=== PATIENT | female | born 1960 | race Caucasian/White ===

== ENCOUNTER 2019-04-17 12:01 | Outpatient (REF) | payer BC, MEDICAID, SELFPAY ==
--- NOTE | 2019-04-17 11:20 | PAPFT_PTH ---
PATIENT: Natali Olson LOC: [facility] U#:[id number] AGE/SX: 58/F ROOM: RE04/17/[address]: JAIMEE Dunbar : 1960 BED: DIS: 04/17/2019 SPEC #: [id number] RECD: 04/17/19 13:02 STATUS: DEMETRIUS REAlvino #: [id number] LESLY: 04/17/19 11:[address]: Tasha Delgado DEPT: [facility] Cytology RECD BY: Demi Coe ENTERED: 04/17/19 13:02 SP TYPE: PAPFT OTHR DR: Linh Jefferson, Tissues: 1 - CX/ENDOCX FOR PAP SMEARS Procedures: PAP THIN PREP/UVM Screening HPV DNA PROBE Comments: [id number]
== END 2019-04-17 12:21 ==
LOC: LBN 12:01
PROVIDERS: PCP Student in an Organized Health Care Education/Training Program; Visit Provider Nurse Practitioner Family
DX: Z12.4 Encounter for screening for malignant neoplasm of cervix (principal); Z11.51 Encounter for screening for human papillomavirus (HPV)
CPT/HCPCS: 88142; 87624

== ENCOUNTER 2019-04-18 00:47 | Outpatient (CLI) | payer BC, MEDICAID, SELFPAY ==
--- NOTE | 2019-04-18 11:13 | DI.MAMMO_ITS ---
EXAM: MG MAMMO SCREENING CLINICAL HISTORY: screening Z12.39 TECHNIQUE: Mammograms were interpreted according to the usual protocol including computer analysis w [employer] CAD system, tomosynthesis and C-view imaging. COMPARISON: [id number] FINDINGS: The breasts are composed of fatty density tissue, breast density category A. No suspicious masses or suspicious microcalcifications are seen. There has been no significant change. IMPRESSION: Category 1, negative mammogram. Yearly screening mammography is recommended. BI-RADS Cat 1 - Negative Breast Density - Category A - Almost entirely fatty
== END 2019-04-18 01:07 ==
PROVIDERS: PCP Student in an Organized Health Care Education/Training Program; Visit Provider Nurse Practitioner Family
DX: Z12.31 Encounter for screening mammogram for malignant neoplasm of breast (principal)
CPT/HCPCS: 77063; 77067

== ENCOUNTER 2019-09-20 03:40 | Outpatient (CLI) | payer MEDICAID, SELFPAY ==
[2019-09-20 13:38] LABS: ALT 35 U/L (14-59); AST 24 U/L (15-37); Albumin 3.6 g/dL (3.4-5.0); Alkaline Phosphatase 99 U/L (46-116); Anion Gap 7.9 mmol/L (3-11); BUN 18 mg/dL (7-18); Bilirubin, Total 0.5 mg/dL (0.2-1.0); CO2 30.1 mmol/L (21.0-32.0); CREATININE 0.91 mg/dL (0.55-1.02); Calcium 9.2 mg/dL (8.5-10.1); Chloride 100 mmol/L (98-107); Glucose 91 mg/dL (74-106); Potassium 4.2 mmol/L (3.5-5.1); Sodium 138 mmol/L (136-145); Total Protein 7.4 g/dL (6.4-8.2)
[2019-09-20 13:53] LABS: Iron 106 ug/dL (50-170); Total Iron Binding Capacity 365 ug/dL (250-450); Transferrin Sat 29 % (15-50)
[2019-09-20 13:54] LABS: Hemoglobin A1C 6.1 % (3.8-5.6)
[2019-09-20 16:29] LABS: Ferritin 30 ng/mL (8-252)
== END 2019-09-20 04:00 ==
PROVIDERS: PCP Student in an Organized Health Care Education/Training Program; Visit Provider Naturopath
DX: E61.1 Iron deficiency (principal); E11.9 Type 2 diabetes mellitus without complications
CPT/HCPCS: 36415; 80053; 82728; 83036; 83540; 83550

== ENCOUNTER 2019-10-20 07:43 | Outpatient (CLI) | payer MEDICAID, SELFPAY ==
--- NOTE | 2019-10-20 10:50 | DI.RAD_ITS ---
EXAM: XR HAND RT LIMITED CLINICAL HISTORY: RT THUMB PAIN,M79.644 AND FINGER PAIN. TECHNIQUE: 2D digital imaging was performed. COMPARISON: No exams were available for comparison FINDINGS: BONES: No acute fracture is present. No bony destructive lesion is seen. JOINTS: No dislocation present. There is minimal periarticular spurring at the distal interphalangeal joints of the finger and interphalangeal joint of the thumb. Carpal region is unremarkable. SOFT TISSUE: Normal. IMPRESSION: Mild degenerative changes.. DATA REPOSITORY: RADIATION DOSE DELIVERED:
== END 2019-10-20 08:03 ==
PROVIDERS: PCP Student in an Organized Health Care Education/Training Program; Visit Provider Naturopath
DX: M79.644 Pain in right finger(s) (principal); M19.041 Primary osteoarthritis, right hand
CPT/HCPCS: 73120

== ENCOUNTER 2020-01-15 02:15 | Outpatient (CLI) | payer MEDICAID, SELFPAY ==
[2020-01-15 14:44] LABS: Hemoglobin A1C 6.1 % (3.8-5.6)
[2020-01-15 14:47] LABS: Iron 99 ug/dL (50-170); Total Iron Binding Capacity 365 ug/dL (250-450); Transferrin Sat 27 % (15-50)
[2020-01-15 14:54] LABS: ALT 32 U/L (14-59); AST 21 U/L (15-37); Albumin 3.6 g/dL (3.4-5.0); Alkaline Phosphatase 96 U/L (46-116); Anion Gap 8.2 mmol/L (3-11); BUN 15 mg/dL (7-18); Bilirubin, Total 0.4 mg/dL (0.2-1.0); CO2 28.8 mmol/L (21.0-32.0); CREATININE 0.84 mg/dL (0.55-1.02); Calcium 9.5 mg/dL (8.5-10.1); Chloride 103 mmol/L (98-107); Ferritin 28 ng/mL (8-252); Glucose 98 mg/dL (74-106); Potassium 4.2 mmol/L (3.5-5.1); Sodium 140 mmol/L (136-145); Total Protein 7.2 g/dL (6.4-8.2)
== END 2020-01-15 02:35 ==
PROVIDERS: PCP Student in an Organized Health Care Education/Training Program; Visit Provider Naturopath
DX: E61.1 Iron deficiency (principal); E11.9 Type 2 diabetes mellitus without complications
CPT/HCPCS: 36415; 80053; 82728; 83036; 83540; 83550

== ENCOUNTER 2020-07-23 03:11 | Outpatient (CLI) | payer MEDICAID, SELFPAY ==
[2020-07-23 14:31] LABS: HCT 37.3 % (36.0-46.0); HGB 12.1 g/dL (11.2-15.7); MCH 28.9 pg (27.0-33.0); MCHC 32.4 % (32.0-36.0); MCV 89.2 fL (80-95); MPV 10.9 fL (8.0-11.0); Platelet Count 206 10^3/uL (130-400); RBC 4.18 10^6/uL (3.93-5.22); RDW-SD 42.4 fL
[2020-07-23 15:05] LABS: FREE T4 1.07 ng/dL (0.76-1.46); TSH 1.48 uIU/mL (0.36-3.74)
[2020-07-23 15:33] LABS: Ferritin 17 ng/mL (8-252)
[2020-07-23 22:07] LABS: T3, Total 120 ng/dL (97-169)
[2020-07-24 22:23] LABS: Zinc, Serum 0.75 mcg/mL (0.66-1.10)
== END 2020-07-23 03:12 | disposition home or self-care (01) ==
LOC: LBO 03:11
PROVIDERS: PCP Student in an Organized Health Care Education/Training Program; Visit Provider Naturopath
DX: R73.03 Prediabetes (principal); R79.89 Other specified abnormal findings of blood chemistry; L60.3 Nail dystrophy
CPT/HCPCS: 36415; 85027; 82728; 83036; 84439; 84443; 84480; 84630

== ENCOUNTER 2020-10-15 03:33 | Outpatient (CLI) | payer MEDICAID, SELFPAY ==
[2020-10-15 14:11] LABS: Calculated LDL 123 mg/dL (<100); Cholesterol 209 mg/dL (<200); Ferritin 38 ng/mL (8-252); HDL Cholesterol 65 mg/dL (40-60); Triglyceride 105 mg/dL (<150)
== END 2020-10-15 03:34 | disposition home or self-care (01) ==
PROVIDERS: PCP Student in an Organized Health Care Education/Training Program; Visit Provider Naturopath
DX: E78.5 Hyperlipidemia, unspecified (principal); R79.89 Other specified abnormal findings of blood chemistry
CPT/HCPCS: 36415; 80061; 82728

== ENCOUNTER 2020-11-05 02:35 | Outpatient (CLI) | payer MEDICAID, SELFPAY ==
[2020-11-05 12:30] LABS: ALT 34 U/L (14-59); AST 22 U/L (15-37); Albumin 3.5 g/dL (3.4-5.0); Alkaline Phosphatase 99 U/L (46-116); Anion Gap 6.5 mmol/L (3-11); BUN 12 mg/dL (7-18); Bilirubin, Total 0.4 mg/dL (0.2-1.0); CO2 30.5 mmol/L (21.0-32.0); CREATININE 0.9 mg/dL (0.55-1.02); Chloride 106 mmol/L (98-107); Glucose 89 mg/dL (74-106); Potassium 4.3 mmol/L (3.5-5.1); Sodium 143 mmol/L (136-145); Total Protein 7.1 g/dL (6.4-8.2)
== END 2020-11-05 02:36 | disposition home or self-care (01) ==
LOC: LBO 02:36
PROVIDERS: PCP Student in an Organized Health Care Education/Training Program; Visit Provider Student in an Organized Health Care Education/Training Program
DX: I10 Essential (primary) hypertension (principal); E11.9 Type 2 diabetes mellitus without complications
CPT/HCPCS: 36415; 80053

== ENCOUNTER 2020-12-03 07:21 | Outpatient (CLI) | payer MEDICAID, SELFPAY ==
[2020-12-03 12:46] LABS: Hemoglobin A1C 5.9 % (<5.7)
[2020-12-03 14:01] LABS: ALT 35 U/L (14-59); AST 22 U/L (15-37); Albumin 3.5 g/dL (3.4-5.0); Alkaline Phosphatase 100 U/L (46-116); Anion Gap 8.1 mmol/L (3-11); BUN 15 mg/dL (7-18); Bilirubin, Total 0.4 mg/dL (0.2-1.0); CO2 28.9 mmol/L (21.0-32.0); CREATININE 0.9 mg/dL (0.55-1.02); Calcium 9.4 mg/dL (8.5-10.1); Chloride 105 mmol/L (98-107); Glucose 92 mg/dL (74-106); Potassium 4.3 mmol/L (3.5-5.1); Sodium 142 mmol/L (136-145); Total Protein 7.2 g/dL (6.4-8.2)
[2020-12-04 20:20] LABS: Calculated LDL 140 mg/dL (<100); Cholesterol 225 mg/dL (<200); HDL Cholesterol 65 mg/dL (40-60); Triglyceride 100 mg/dL (<150)
[2020-12-05 03:43] LABS: Vitamin D 25 Total 40.3 ng/mL (30-100)
== END 2020-12-03 07:22 | disposition home or self-care (01) ==
PROVIDERS: PCP Student in an Organized Health Care Education/Training Program; Visit Provider Naturopath
DX: E78.5 Hyperlipidemia, unspecified (principal); R73.03 Prediabetes; E55.9 Vitamin D deficiency, unspecified
CPT/HCPCS: 36415; 80053; 80061; 82306; 83036

== ENCOUNTER 2021-01-30 09:25 | Outpatient (CLI) | payer MEDICAID, SELFPAY ==
--- NOTE | 2021-01-30 09:15 | RT.EKG_ITS ---
APPROVED REPORT Exam: Resting ECG Reason for Exam: HTN, family hx of cardiac d/o, atypical chest pain Patient Location: O HR:64 bpm ECG Measurements Heart Rate 64 AXIS MT 176 P 63 QRSd 88 QRS 25 QT 399 T 25 QTc 412 Conclusion Sinus rhythm...normal P axis, V-rate 60- 99 Normal Electrocardiogram
== END 2021-01-30 09:26 | disposition home or self-care (01) ==
LOC: DI.KIM 09:27
PROVIDERS: PCP Student in an Organized Health Care Education/Training Program; Visit Provider Student in an Organized Health Care Education/Training Program
DX: I10 Essential (primary) hypertension (principal); R07.89 Other chest pain; Z82.49 Family history of ischemic heart disease and other diseases of the circulatory system
CPT/HCPCS: 93010

== ENCOUNTER 2021-03-20 01:26 | Outpatient (CLI) | payer MEDICAID, SELFPAY ==
--- NOTE | 2021-03-20 09:00 | DI.US_ITS ---
Exam(s) US SOFT TISS ABD WALL/LOW BACK EXAM: US SOFT TISS ABD WALL/LOW BACK CLINICAL HISTORY: evaluate area of indentation w/ tenderness, ? HERNIA,ABS WALL DEFECT,L90.. TECHNIQUE: Ultrasound was performed using standard protocol. COMPARISON: No exams were available for comparison FINDINGS: Sonographic assessment utilizing grayscale and color Doppler imaging was performed and targeted to th e area of clinical concern. Area of concern is on anterior left abdominal-pelvic wall. This is apparently an area of discolorati on. Presented images do not reveal evidence of solid nor significant cystic lesion. Also no obvious lipo ma. No evidence of subcutaneous edema in this region. IMPRESSION: No significant ultrasound findings in area of clinical concern the left anterior abdominal wall. DATA REPOSITORY:
== END 2021-03-20 01:46 ==
PROVIDERS: PCP Student in an Organized Health Care Education/Training Program; Visit Provider Student in an Organized Health Care Education/Training Program
DX: L90.6 Striae atrophicae (principal)
CPT/HCPCS: 76705

== ENCOUNTER 2021-03-25 01:40 | Outpatient (CLI) | payer MEDICAID, SELFPAY ==
--- NOTE | 2021-03-25 07:15 | DI.US_ITS ---
APPROVED REPORT EXAM: Comprehensive 2D, Doppler, and color-flow Echocardiogram Patient Location: Out-Patient Fruit Shipper: Amy Singh RDCS (AE) Indications: Murmur, F/H valvular heart disease, SOB Other Information Study Quality: Adequate Conclusion Normal left ventricular wall thickness and chamber size. Estimated ejection fraction is 60%. There are no segmental wall motion abnormalities Normal right ventricular size and systolic function Both atria are normal in size Trileaflet aortic valve with trace regurgitation Mildly thickened mitral leaflets with trace regurgitation Normal tricuspid valve, trace regurgitation, normal estimated right ventricular systolic pressure Moderately dilated ascending aorta measuring 4.13 cm Wall motion Left Ventricle The left ventricle is normal size. The left ventricular systolic function is normal. The left ventric ular ejection fraction is within the normal range. There is normal left ventricular wall thickness. T here is normal LV segmental wall motion. There is no ventricular septal defect visualized. LVEF is 59 %. Right Ventricle The right ventricle is normal size. The right ventricular systolic function is normal. The RVSP is 20 .8mmHg. Atria The left atrium size is normal. The right atrium size is normal. The interatrial septum is intact wit h no evidence for an atrial septal defect. Aortic Valve The aortic valve is normal in structure. Aortic valve is trileaflet. There is no aortic valvular sten osis. Trace aortic regurgitation. Mitral Valve Mitral valve leaflets are mildly thickened. No evidence of mitral valve stenosis. Trace mitral regurg itation. Tricuspid Valve The tricuspid valve is normal in structure. There is no tricuspid valve stenosis. Trace tricuspid reg urgitation. Pulmonic Valve The pulmonary valve is normal in structure. There is no pulmonic valvular stenosis. Trace pulmonic re gurgitation. Great Vessels The aortic root is normal in size. The ascending aorta is moderately dilated.4.13 cm Aortic arch is n ormal in caliber. IVC is normal in size and collapses >50% with inspiration. Pericardium There is no pericardial effusion. 2D Dimensions IVSD d PLAX 0.85 cm F: 0.6-1.0 LV Vol A2C d MOD 84.2 mL LVPW d PLAX 0.85 cm F: 0.6 - 1.0 LV Vol A4C d MOD 89.9 mL LVID d PLAX 4.59 cm F: 3.8 - 5.2 LA vol/ BSA A2C s A-L 26.5 mL/m2 LVDs 3.10 cm F: 2.2 - 3.5 LA vol/ BSA A4C s A-L 30.3 mL/m2 Ao Root d 3.44 cm F: 2.7 - 3.3 LA Vol/ BSA Biplane s A-L 29.9 mL/m2 RA Area A4C 13.99 cm2 LA Area A4C s MOD 20.07 cm2 RA Vol/ BSA A4C s A-L 17.6 mL/m2 LA Area A2C s MOD 17.79 cm2 Ao Asc Diam d 4.13 cm F: 2.3 - 3.1 LV EF A4C MOD 59.0 % LV EF Teichholz 60.6 % LV EF A2C MOD 57.7 % LVEF (Vela's) 59.71 % F: 54 - 74 LV EF Biplane MOD 59.7 % LV Volume 68.28 mL F: 46 - 106 SV 54.01 mL LV Volume Index 34.83 mL/m2 F: 29 - 61 SV Index 27.52 mL/m2 LV Vol Biplane MOD 90.5 mL FS 32.25 % M-Mode TAPSE 2.14 cm (M/F) >1.7 LV Diastology MV E' medial 0.075 (>0.07 m/s) E/A Ratio 1.1 LV E/e MED 7.70 (<14) MV E Vmax 0.58 (0.4-1.3 m/s) MV E' lateral 0.113 (>0.1 m/s) MV A Vmax 0.55 (0.4-1.3 m/s) LV E/e LAT 5.05 (<14) MV E/A Ratio 0.98 MV E/E' medial 7.70 MV E/E' lateral 5.10 Aortic Valve LVOT Area 2.97 cm2 AoV Area Vmax 2.12 cm2 LVOT Vmax 0.89 m/s AoV Area/ BSA (Vmax) 1.08 cm2/m2 LVOT Mean Shun. 0.53 m/s RUFINA Mean Shun. 1.86 cm2 LVOT Peak Grad 3.2 mmHg RUFINA Mean Shun. Index 0.95 cm2/m2 LVOT Mean Grad 1.4 mmHg AR DT 2710 msec LVOT VTI 0.170 m AR PHT 786 msec LVOT Diam s 1.90 cm AoV Vmax 1.25 m/s Velocity Ratio 0.71 AoV Mean Shun. 0.85 m/s AoV Peak Grad 6.3 mmHg LVOT SV 50.33 mL AoV Mean Grad 3.2 mmHg AoV VTI 0.241 m AoV Area VTI 2.08 cm2 AoV Area/ BSA (VTI) 1.06 cm/m2 Mitral Valve MV DT 286 (160-240 msec) MV PHT 83 msec MV Area PHT 2.65 cm2 MV VTI 0.185 m MV Area VTI 2.73 (4.0-6.0 cm2) Pulmonary Valve PV Vmax 0.82 (0.5-1.5 m/s) RVOT Peak Gr. 1.45 mmHg PV Peak Grad 2.7 mmHg RVOT Mean Gr. 0.75 mmHg PV Mean Grad 1.4 mmHg RVOT VTI 0.126 m PV VTI 0.150 m RVOT Vmax 0.60 m/s Tricuspid Valve TR Peak Grad 17.8 mmHg TR Vmax 2.11 m/s RA Pressure 3.00 mmHg RVSP (TR) 20.8 mmHg
== END 2021-03-25 02:00 ==
PROVIDERS: PCP Student in an Organized Health Care Education/Training Program; Visit Provider Student in an Organized Health Care Education/Training Program
DX: R01.1 Cardiac murmur, unspecified (principal); R06.02 Shortness of breath; Z82.49 Family history of ischemic heart disease and other diseases of the circulatory system; I77.810 Thoracic aortic ectasia
CPT/HCPCS: 93306

== ENCOUNTER 2021-03-27 02:14 | Outpatient (CLI) | payer MEDICAID, SELFPAY ==
--- NOTE | 2021-03-27 13:40 | DI.MAMMO_ITS ---
Exam(s) MAMMO SCREENING EXAM: MAMMO SCREENING CLINICAL HISTORY: screening,Z12.39. TECHNIQUE: Bilateral full field digital CC and MLO mammographic images were obtained with 3D tomosyn thesis and utilizing computer aided detection (CAD). COMPARISON: Prior mammograms dating back to 2011, the most recent being March 2019. FINDINGS: There are no CAD designations. There are no new spiculated masses nor malignant appearing microcalcification groups. There is no significant architectural distortion nor skin thickening-retraction. IMPRESSION: No radiographic evidence of malignancy. BI-RADS Category 1 - Negative Breast Density - Category A - Almost entirely fatty Breast density Category C or D implies that the patient has dense breast tissue. Dense breast tissue can make it harder to find cancer on a mammogram. Dense breast tissue is also associated with an incr eased risk of breast cancer. This information about the result of the mammogram report was provided to the patient to raise their awareness. Use this report when you speak with the patient about their risks for breast cancer, which includes their family history. At that time, you may recommend additional screening tests (Ultrasoun d or MRI) as these tests may add significant information. A negative radiographic report should not delay biopsy if a dominant or clinically suspicious mass is present. Up to ten percent of cancers are not identified on mammography. A negative report may reinforce clinical impression. Adenosis and dense breasts may obscure an underlying neoplasm. False positive reports average 6 to 10%. Patient will receive a letter notifying them of these results.
== END 2021-03-27 02:34 ==
PROVIDERS: PCP Student in an Organized Health Care Education/Training Program; Visit Provider Student in an Organized Health Care Education/Training Program
DX: Z12.31 Encounter for screening mammogram for malignant neoplasm of breast (principal)
CPT/HCPCS: 77063; 77067

== ENCOUNTER 2021-05-02 01:09 | Outpatient (CLI) | payer MEDICAID, SELFPAY ==
[2021-05-02 12:01] LABS: Calculated LDL 142 mg/dL (<100); Cholesterol 230 mg/dL (<200); Ferritin 40 ng/mL (8-252); HDL Cholesterol 70 mg/dL (40-60); Triglyceride 90 mg/dL (<150)
[2021-05-02 12:53] LABS: Iron 134 ug/dL (50-170); Total Iron Binding Capacity 354 ug/dL (250-450); Transferrin Sat 38 % (15-50)
[2021-05-05 05:47] LABS: Vitamin D 25 Total 42.8 ng/mL (30-100)
[2021-05-05 11:25] LABS: Alcohol Negative mg/dL (Cutoff: 10); Amphetamines Negative; Barbiturates Negative; Benzodiazepines Negative; Cocaine Negative; Opiates Negative; Phencyclidine Negative ng/mL (Cutoff: 25); Tetrahydrocannabinol Negative ng/mL (Cutoff: 50)
== END 2021-05-02 01:10 | disposition home or self-care (01) ==
LOC: LBO 01:09
PROVIDERS: Naturopath; PCP Student in an Organized Health Care Education/Training Program; Visit Provider Student in an Organized Health Care Education/Training Program
DX: G89.29 Other chronic pain (principal); E78.5 Hyperlipidemia, unspecified; R73.03 Prediabetes; E61.1 Iron deficiency; E55.9 Vitamin D deficiency, unspecified
CPT/HCPCS: 36415; 80061; 80307; 82306; 82728; 83036; 83540; 83550

== ENCOUNTER 2021-10-29 04:00 | Outpatient (CLI) | payer MEDICAID, SELFPAY ==
[2021-10-29 09:31] LABS: HCT 37.9 % (36.0-46.0); HGB 12.5 g/dL (11.2-15.7); MCH 29.2 pg (27.0-33.0); MCV 89 fL (80-95); MPV 10.7 fL (8.0-11.0); Platelet Count 181 10^3/uL (130-400); RBC 4.28 10^6/uL (3.93-5.22); RDW 13.2 % (11.7-14.6); RDW-SD 42.9 fL; WBC 7.53 10^3/uL (4.4-10.8)
[2021-10-29 11:00] LABS: Hemoglobin A1C 6.2 % (<5.7)
[2021-10-29 11:06] LABS: ALT 34 U/L (14-59); AST 23 U/L (15-37); Albumin 3.6 g/dL (3.4-5.0); Alkaline Phosphatase 98 U/L (46-116); Anion Gap 10.4 mmol/L (3-11); BUN 16 mg/dL (7-18); Bilirubin, Total 0.4 mg/dL (0.2-1.0); CO2 25.6 mmol/L (21.0-32.0); CREATININE 0.8 mg/dL (0.55-1.02); Calcium 9.4 mg/dL (8.5-10.1); Chloride 103 mmol/L (98-107); Ferritin 37 ng/mL (8-252); Glucose 99 mg/dL (74-106); Potassium 4.4 mmol/L (3.5-5.1); Sodium 139 mmol/L (136-145); Total Protein 7.7 g/dL (6.4-8.2)
[2021-10-29 14:28] LABS: Iron 96 ug/dL (50-170); Total Iron Binding Capacity 362 ug/dL (250-450); Transferrin Sat 27 % (15-50)
[2021-10-29 14:41] LABS: Calculated LDL 143 mg/dL (<100); Cholesterol 228 mg/dL (<200); HDL Cholesterol 69 mg/dL (40-60); Triglyceride 82 mg/dL (<150); Vitamin B12 1001 pg/mL (193-986)
[2021-10-29 14:44] LABS: Folate > 20.0 ng/mL (8.6-20.0)
== END 2021-10-29 04:01 | disposition home or self-care (01) ==
LOC: LBO 04:00
PROVIDERS: Naturopath; PCP Student in an Organized Health Care Education/Training Program
DX: E11.9 Type 2 diabetes mellitus without complications (principal); I10 Essential (primary) hypertension; E78.00 Pure hypercholesterolemia, unspecified; F32.9 Major depressive disorder, single episode, unspecified
CPT/HCPCS: 36415; 80053; 80061; 85027; 82607; 82728; 82746; 83036; 83540; 83550

== ENCOUNTER 2022-06-02 01:45 | Outpatient (CLI) | payer MEDICAID, SELFPAY ==
--- NOTE | 2022-06-02 07:15 | DI.US_ITS ---
Exam(s) US AAA SCREENING EXAM: US AAA SCREENING CLINICAL HISTORY: evaluate for AAA,former smoker,f/u echo 03/2021 COMPARISON: No priors for comparison. FINDINGS: Abdominal Aorta: Proximal: 2.5 x 2.6 cm Mid: 2.0 x 2.5 cm Distal: 1.9 x 2.2 cm Iliac's: Right: 1.2 x 1.5 cm Left: 1.3 x 1.5 cm No significant atherosclerotic disease is seen. IMPRESSION: No evidence of abdominal aortic aneurysm. DATA REPOSITORY:
== END 2022-06-02 02:05 ==
LOC: DI 01:45
PROVIDERS: PCP Student in an Organized Health Care Education/Training Program; Visit Provider Student in an Organized Health Care Education/Training Program
DX: I71.40 Abdominal aortic aneurysm, without rupture, unspecified (principal); Z87.891 Personal history of nicotine dependence; Z13.6 Encounter for screening for cardiovascular disorders
CPT/HCPCS: 76706

== ENCOUNTER 2022-06-24 11:49 | Outpatient (REF) | payer MEDICAID, SELFPAY ==
--- NOTE | 2022-06-24 11:15 | PAPFT_PTH ---
PATIENT: Natali Olson LOC: [facility] U#:[id number] AGE/SX: 61/F ROOM: RE06/24/[address]: Tenisha Castro NP : 1960 BED: DIS: 06/24/2022 SPEC #: [id number] RECD: 06/24/22 12:55 STATUS: DEMETRIUS REAlvino #: [id number] LESLY: 06/24/22 11:[address]: Tenisha Castro NP DEPT: [facility] Cytology RECD BY: Demi Coe ENTERED: 06/24/22 12:56 SP TYPE: PAPFT OTHR DR: Linh Jefferson, DO Tissues: 1 - CX/ENDOCX FOR PAP SMEARS Procedures: PAP THIN PREP/UVM Screening HPV DNA PROBE Comments: [id number]
== END 2022-06-24 11:50 | disposition home or self-care (01) ==
LOC: LBN 11:49
PROVIDERS: PCP Student in an Organized Health Care Education/Training Program; Visit Provider Nurse Practitioner Women's Health
DX: Z12.4 Encounter for screening for malignant neoplasm of cervix (principal); Z11.51 Encounter for screening for human papillomavirus (HPV)
CPT/HCPCS: 88142; 87624

== ENCOUNTER 2022-07-15 01:25 | Outpatient (CLI) | payer MEDICAID, SELFPAY ==
--- NOTE | 2022-07-15 08:45 | DI.MAMMO_ITS ---
Exam(s) MAMMO SCREENING EXAM: MAMMO SCREENING CLINICAL HISTORY: screening TECHNIQUE: Bilateral full field digital CC and MLO mammographic images were obtained with 3D tomosyn thesis and utilizing computer aided detection (CAD). COMPARISON: Available for comparison. FINDINGS: Masses/Architectural Distortion: None seen. Microcalcifications: No suspicious pleomorphic-type are seen. Skin Thickening/Nipple Retraction: None. IMPRESSION: 1. No significant interval change with no specific features of malignancy noted. 2. Unless there is more urgent need, screening mammography is recommended, as per [place] [employer] guidelines. BI-RADS Category 1 - Negative Breast Density - Category A - Almost entirely fatty Breast density category C or D implies that the patient has dense breast tissue. Dense breast tissue is very common and is not abnormal but dense breast tissue can make it harder to find cancer on a ma mmogram. Also, dense breast tissue may increase their breast cancer risk. This information about the result of the mammogram report was provided to the patient to raise their awareness. Use this report when you speak with the patient about their risks for breast cancer, which includes their family hist ory. At that time, you may recommend for more screening tests (Ultrasound or MRI) as they might be us eful based on their risk. A negative radiographic report should not delay biopsy if a dominant or clinically suspicious mass is present. Up to ten percent of cancers are not identified on mammography. A negative report may reinforce clinical impression. Adenosis and dense breasts may obscure an underlying neoplasm. False positive reports average 6 to 10%. Patient will receive a letter notifying them of these results.
== END 2022-07-15 01:45 ==
LOC: DI 01:25
PROVIDERS: PCP Student in an Organized Health Care Education/Training Program; Visit Provider Nurse Practitioner Women's Health
DX: Z12.31 Encounter for screening mammogram for malignant neoplasm of breast (principal)
CPT/HCPCS: 77063; 77067

== ENCOUNTER 2022-10-12 02:03 | Outpatient (CLI) | payer MEDICAID, SELFPAY ==
[2022-10-12 12:09] LABS: ALT 29 U/L (14-59); AST 22 U/L (15-37); Albumin 3.6 g/dL (3.4-5.0); Alkaline Phosphatase 79 U/L (46-116); Anion Gap 5.1 mmol/L (3-11); BUN 18 mg/dL (7-18); Bilirubin, Total 0.3 mg/dL (0.2-1.0); CO2 28.9 mmol/L (21.0-32.0); CREATININE 0.8 mg/dL (0.55-1.02); Calculated LDL 113 mg/dL (<100); Chloride 105 mmol/L (98-107); Cholesterol 186 mg/dL (<200); Glucose 98 mg/dL (74-106); HDL Cholesterol 58 mg/dL (40-60); Sodium 139 mmol/L (136-145); Total Protein 7.8 g/dL (6.4-8.2); Triglyceride 75 mg/dL (<150)
[2022-10-13 11:44] LABS: Hemoglobin A1C 5.6 % (<5.7)
== END 2022-10-12 02:04 | disposition home or self-care (01) ==
LOC: LBO 02:03
PROVIDERS: PCP Student in an Organized Health Care Education/Training Program; Visit Provider Student in an Organized Health Care Education/Training Program
DX: E11.9 Type 2 diabetes mellitus without complications (principal); I10 Essential (primary) hypertension; Z13.220 Encounter for screening for lipoid disorders; Z86.39 Personal history of other endocrine, nutritional and metabolic disease
CPT/HCPCS: 36415; 80053; 80061; 82306; 83036

== ENCOUNTER 2023-05-07 02:27 | Outpatient (CLI) | payer MEDICAID, SELFPAY ==
[2023-05-07 13:40] LABS: Anion Gap 7.1 mmol/L (3-11); BUN 17 mg/dL (7-18); CO2 32.9 mmol/L (21.0-32.0); CREATININE 0.9 mg/dL (0.55-1.02); Calcium 9.6 mg/dL (8.5-10.1); Chloride 100 mmol/L (98-107); Estimated GFR 72.73 (mL/min/1.73m2); Glucose 108 mg/dL (74-106); Magnesium 2.1 mg/dL (1.8-2.4); Potassium 3.7 mmol/L (3.5-5.1); Sodium 140 mmol/L (136-145)
== END 2023-05-07 02:28 | disposition home or self-care (01) ==
LOC: LBO 02:27
PROVIDERS: PCP Student in an Organized Health Care Education/Training Program; Referring Provider Student in an Organized Health Care Education/Training Program; Visit Provider Student in an Organized Health Care Education/Training Program
DX: R25.2 Cramp and spasm (principal); Z91.89 Other specified personal risk factors, not elsewhere classified
CPT/HCPCS: 36415; 80048; 83735

== ENCOUNTER 2023-11-01 06:03 | Outpatient (CLI) | payer MEDICAID, SELFPAY ==
[2023-11-01 13:13] LABS: Anion Gap 6.9 mmol/L (3-11); BUN 17 mg/dL (7-18); CO2 31.1 mmol/L (21.0-32.0); Calcium 9.7 mg/dL (8.5-10.1); Chloride 104 mmol/L (98-107); Estimated GFR 64.09 (mL/min/1.73m2); Glucose 90 mg/dL (74-106); Potassium 3.8 mmol/L (3.5-5.1); Sodium 142 mmol/L (136-145)
== END 2023-11-01 06:04 | disposition home or self-care (01) ==
LOC: LBO 06:03
PROVIDERS: PCP Student in an Organized Health Care Education/Training Program; Visit Provider Student in an Organized Health Care Education/Training Program
DX: Z91.89 Other specified personal risk factors, not elsewhere classified (principal); I10 Essential (primary) hypertension
CPT/HCPCS: 36415; 80048

== ENCOUNTER 2024-03-23 02:57 | Outpatient (CLI) | payer MEDICAID, SELFPAY ==
[2024-03-23 10:19] LABS: Anion Gap 8.2 mmol/L (3-11); BUN 16 mg/dL (7-18); CO2 31.8 mmol/L (21.0-32.0); Calcium 9.5 mg/dL (8.5-10.1); Calculated LDL 124 mg/dL (<100); Chloride 104 mmol/L (98-107); Cholesterol 207 mg/dL (<200); Glucose 98 mg/dL (74-106); HDL Cholesterol 64 mg/dL (40-60); Potassium 4.5 mmol/L (3.5-5.1); Sodium 144 mmol/L (136-145); TSH (W/Ref FT4) 1.61 uIU/mL (0.36-3.74); Triglyceride 95 mg/dL (<150)
== END 2024-03-23 02:58 | disposition home or self-care (01) ==
LOC: LBO 02:58
PROVIDERS: PCP Student in an Organized Health Care Education/Training Program; Referring Provider Student in an Organized Health Care Education/Training Program; Visit Provider Student in an Organized Health Care Education/Training Program
DX: I10 Essential (primary) hypertension (principal); I99.9 Unspecified disorder of circulatory system; E11.9 Type 2 diabetes mellitus without complications; Z91.89 Other specified personal risk factors, not elsewhere classified; Z86.39 Personal history of other endocrine, nutritional and metabolic disease
CPT/HCPCS: 36415; 80048; 80061; 84443

== ENCOUNTER 2024-04-25 01:13 | Outpatient (CLI) | payer MEDICAID, SELFPAY ==
--- NOTE | 2024-04-25 07:00 | DI.RAD_ITS ---
Exam(s) XR KNEE RT 3V AP,LAT,ANNITA EXAM: XR KNEE RT 3V AP,LAT,ANNITA CLINICAL HISTORY: eval joint space, ? bony path. TECHNIQUE: 2D digital imaging was performed. Three views. COMPARISON: CR XR KNEE LT 3V AP,LAT,ANNITA from 04/25/2024 FINDINGS: BONES: No acute fracture is present. No bony destructive lesion is seen. JOINTS: The knee is normally aligned. No joint effusion is seen. The joint spaces are maintained. Minimal periarticular spurring. SOFT TISSUE: Normal. IMPRESSION: Minimal degenerative changes. DATA REPOSITORY: RADIATION DOSE DELIVERED:
--- NOTE | 2024-04-25 07:00 | DI.RAD_ITS ---
Exam(s) XR KNEE LT 3V AP,LAT,ANNITA EXAM: XR KNEE LT 3V AP,LAT,ANNITA CLINICAL HISTORY: eval joint space, ? bony path,knee pain,m25.569. TECHNIQUE: 2D digital imaging was performed of the left knee. Three images were obtained. AP, late ral and PA tunnel views were obtained. COMPARISON: No exams were available for comparison FINDINGS: BONES: No acute fracture is present. No bony destructive lesion is seen. JOINTS: There is mild narrowing and small osteophytes seen in the medial femoral tibial joint. There is also mild narrowing of the lateral femoral tibial joint. No joint effusion is seen. No loose bod y. SOFT TISSUE: There is a small calcification adjacent to the medial femoral condyle which may represen t prior MCL injury. IMPRESSION: Mild degenerative changes seen in the left knee. DATA REPOSITORY: RADIATION DOSE DELIVERED:
== END 2024-04-25 01:33 ==
LOC: DI 01:13
PROVIDERS: PCP Student in an Organized Health Care Education/Training Program; Visit Provider Student in an Organized Health Care Education/Training Program
DX: M25.561 Pain in right knee (principal); M25.562 Pain in left knee
CPT/HCPCS: 73562

== ENCOUNTER 2024-08-15 00:50 | Outpatient (CLI) | payer MEDICAID, SELFPAY ==
--- NOTE | 2024-08-15 06:00 | DI.MRI_ITS ---
Exam(s) MR ANGIO BRAIN WO EXAM: MR ANGIO BRAIN WO CLINICAL HISTORY: headache, fam hx of brain aneurysm,z82.49,r51 TECHNIQUE: Performed on 1.5 nora unit with [id number] sequence. No IV contrast COMPARISON: No exams were available for comparison FINDINGS: ANTERIOR CIRCULATION: Both internal carotid arteries are patent in the skull base-carotid canals as well as within the bila teral cavernous sinuses. The supraclinoid aspects of both internal carotid arteries are patent and n onaneurysmal. Both A1 segments are patent as are the anterior cerebral arteries and there is no evid ence of aneurysm at the level the anterior communicating artery. Both middle cerebral arteries are patent. No significant stenosis nor aneurysms evident in these ves sels. POSTERIOR CIRCULATION: At the skull base both vertebral arteries contribute to the formation of the basilar artery. The bas ilar artery is patent without significant stenosis nor aneurysms. Distally gives off patent superior cerebellar arteries and above this level terminates as patent posterior cerebral arteries. Flow to both posterior cerebral arteries is compound in by posterior communicating arteries which are evident on both sides of the [id number]-zy-Usixae. There is no evidence of aneurysm at the tip of the basilar artery nor elsewhere in the kiaphh-mj-Borl is. IMPRESSION: 1. Patent intracranial arteries with no evidence of aneurysms, as per request. DATA REPOSITORY:
== END 2024-08-15 01:10 ==
LOC: DI 00:51
PROVIDERS: PCP Nurse Practitioner Family; Visit Provider Nurse Practitioner Family
DX: Z82.49 Family history of ischemic heart disease and other diseases of the circulatory system (principal); R51.9 Headache, unspecified
CPT/HCPCS: 70544

== ENCOUNTER 2024-08-21 01:13 | Outpatient (CLI) | payer MEDICAID, SELFPAY ==
--- NOTE | 2024-08-21 06:00 | DI.MAMMO_ITS ---
Exam(s) MAMMO SCREENING EXAM: MAMMO SCREENING CLINICAL HISTORY: screening,z12.39 TECHNIQUE: Bilateral full field digital CC and MLO mammographic images were obtained with 3D tomosyn thesis and utilizing computer aided detection (CAD). COMPARISON: Available for comparison. FINDINGS: Masses/Architectural Distortion: None seen. Microcalcifications: No suspicious pleomorphic-type are seen. Skin Thickening/Nipple Retraction: None. IMPRESSION: 1. No significant interval change with no specific features of malignancy noted. 2. Unless there is more urgent need, screening mammography is recommended, as per [place] [employer] guidelines. BI-RADS Category 1 - Negative Breast Density - Category A - Almost entirely fatty Breast density category C or D implies that the patient has dense breast tissue. Dense breast tissue is very common and is not abnormal but dense breast tissue can make it harder to find cancer on a ma mmogram. Also, dense breast tissue may increase their breast cancer risk. This information about the result of the mammogram report was provided to the patient to raise their awareness. Use this report when you speak with the patient about their risks for breast cancer, which includes their family hist ory. At that time, you may recommend for more screening tests (Ultrasound or MRI) as they might be us eful based on their risk. A negative radiographic report should not delay biopsy if a dominant or clinically suspicious mass is present. Up to ten percent of cancers are not identified on mammography. A negative report may reinforce clinical impression. Adenosis and dense breasts may obscure an underlying neoplasm. False positive reports average 6 to 10%. Patient will receive a letter notifying them of these results.
--- NOTE | 2024-08-21 10:45 | DI.RAD_ITS ---
Exam(s) XR CHEST 2V PA LATERAL EXAM: XR CHEST 2V PA LATERAL CLINICAL HISTORY: eval pathology,cough, r05.9 TECHNIQUE: 2D digital imaging was performed of the chest. Two images were obtained. PA and lateral views were obtained. COMPARISON: No exams were available for comparison FINDINGS: MEDIASTINUM: Normal. HEART: Normal. PULMONARY VASCULATURE: Normal. LUNGS: Clear. PLEURAL SPACE: No pleural effusion or pneumothorax. BONE:Within normal limits for the patient's age. OTHER FINDINGS:Normal. IMPRESSION: No acute pulmonary findings. DATA REPOSITORY: RADIATION DOSE DELIVERED:
== END 2024-08-21 01:33 ==
LOC: DI 01:13
PROVIDERS: PCP Nurse Practitioner Family; Visit Provider Nurse Practitioner Family
DX: Z12.31 Encounter for screening mammogram for malignant neoplasm of breast (principal); R05.9 Cough, unspecified
CPT/HCPCS: 77063; 77067; 71046

== ENCOUNTER 2024-08-21 12:55 | Outpatient (CLI) | payer MEDICAID, SELFPAY ==
[2024-08-21 12:42] LABS: Abs Immature Grans 0.01 10^3/uL (0.0-0.06); Absolute Basophil Count 0.03 10^3/uL (0.0-0.2); Absolute Eosinophil Count 0.32 10^3/uL (0.0-0.7); Absolute Lymphocyte Count 2.81 10^3/uL (1.2-3.4); Absolute Monocyte Count 0.58 10^3/uL (0.1-0.8); Absolute Neutrophil Count 4.44 10^3/uL (1.2-6.7); Basophils % 0.4 %; Eosinophils % 3.9 %; HCT 37.6 % (36.0-46.0); HGB 12.1 g/dL (11.2-15.7); Immature Grans % 0.1 %; Lymphocytes % 34.3 %; MCH 29.6 pg (27.0-33.0); MCHC 32.2 % (32.0-36.0); MCV 92 fL (80-95); MPV 10.5 fL (8.0-11.0); Monocytes % 7.1 %; Neutrophils % 54.2 %; Platelet Count 162 10^3/uL (130-400); RBC 4.09 10^6/uL (3.93-5.22); RDW 13.2 % (11.7-14.6); RDW-SD 45.1 fL; WBC 8.19 10^3/uL (4.4-10.8)
[2024-08-21 13:22] LABS: Hemoglobin A1C 5.9 % (<5.7)
[2024-08-21 13:36] LABS: ALT 25 U/L (14-59); AST 18 U/L (15-37); Albumin 3.5 g/dL (3.4-5.0); Alkaline Phosphatase 85 U/L (46-116); Anion Gap 5.3 mmol/L (3-11); BUN 16 mg/dL (7-18); Bilirubin, Total 0.3 mg/dL (0.2-1.0); CO2 30.7 mmol/L (21.0-32.0); CREATININE 0.7 mg/dL (0.55-1.02); Calcium 9.2 mg/dL (8.5-10.1); Calculated LDL 124 mg/dL (<100); Chloride 106 mmol/L (98-107); Cholesterol 202 mg/dL (<200); Estimated GFR 97.72 (mL/min/1.73m2); Glucose 95 mg/dL (74-106); HDL Cholesterol 67 mg/dL (>or=50); Potassium 4.3 mmol/L (3.5-5.1); Sodium 142 mmol/L (136-145); Total Protein 7.5 g/dL (6.4-8.2); Triglyceride 56 mg/dL (<150); Vitamin D 25 Total 41 ng/mL (30-100)
[2024-08-21 22:09] LABS: Homocysteine 8.5 umol/L (5.0-13.9)
[2024-08-24 11:09] LABS: Apolipoprotein A1, S 160 mg/dL (>=140); Apolipoprotein B, S 93 mg/dL (See Comment); Apolipoprotein B/A 1 ratio 0.6 (See Comment)
== END 2024-08-21 12:56 | disposition home or self-care (01) ==
LOC: LBO 12:57
PROVIDERS: PCP Nurse Practitioner Family; Visit Provider Naturopath
DX: R05.3 Chronic cough (principal); R73.03 Prediabetes; E78.5 Hyperlipidemia, unspecified; E55.9 Vitamin D deficiency, unspecified
CPT/HCPCS: 36415; 80053; 80061; 82172; 82306; 83090; 83036; 85025

== ENCOUNTER 2024-09-21 07:22 | Outpatient (CLI) | payer MEDICAID, SELFPAY ==
--- NOTE | 2024-09-21 | DI.RAD_ITS ---
Exam(s) XR HIP PELVIS ADULT BL EXAM: XR HIP PELVIS ADULT BL CLINICAL HISTORY: BILAT HIP PAIN,M25.50. TECHNIQUE: 2D digital imaging was performed of the pelvis and bilateral hips. Three images were obt ained. AP pelvis and lateral views of both hips were obtained. COMPARISON: No exams were available for comparison FINDINGS: BONES: No acute fracture is present. No bony destructive lesion is seen. JOINTS: No dislocation present. The hip joints are well maintained. Mild prominence of the left acet abulum is noted. The sacroiliac joints are well maintained as is the symphysis pubis. SOFT TISSUE: Normal. IMPRESSION: Mild degenerative changes are seen in the left hip. DATA REPOSITORY: RADIATION DOSE DELIVERED:
== END 2024-09-21 07:42 ==
PROVIDERS: PCP Nurse Practitioner Family; Visit Provider Nurse Practitioner Family
DX: M16.12 Unilateral primary osteoarthritis, left hip (principal); M25.551 Pain in right hip
CPT/HCPCS: 73521

== ENCOUNTER 2024-09-22 03:26 | Outpatient (CLI) | payer MEDICAID, SELFPAY ==
[2024-09-22] MEDS: Levalbuterol HFA 15 GM INH 4 PUFF IH (11:19)
[2024-09-22] MEDS: Inhaler, Assist Device 1 EACH MC (11:19)
--- NOTE | 2024-09-25 21:24 | W.PFT ---
Date of service: 09/22/24 Time of Service: 08:20 Pulmonary Function Test Result Indications: Cough Interpretation Spirometry: No airflow limitation. No significant bronchodilator response. Lung Volumes: Normal lung volumes Diffusion Capacity: Normal diffusion Airway Pressure: Normal airways resistance Impression Normal pulmonary function testing Clinical Correlation therefore is recommended.
== END 2024-09-22 03:27 | disposition home or self-care (01) ==
PROVIDERS: PCP Nurse Practitioner Family; Visit Provider Student in an Organized Health Care Education/Training Program
DX: R05.9 Cough, unspecified (principal)
CPT/HCPCS: 94060; 94726; 94729

== ENCOUNTER 2024-11-07 16:19 | Outpatient (REF) | payer MEDICAID, SELFPAY ==
[2024-11-07 10:33] LABS: Abs Immature Grans 0.01 10^3/uL (0.0-0.06); Absolute Basophil Count 0.03 10^3/uL (0.0-0.2); Absolute Eosinophil Count 0.19 10^3/uL (0.0-0.7); Absolute Lymphocyte Count 1.98 10^3/uL (1.2-3.4); Absolute Monocyte Count 0.49 10^3/uL (0.1-0.8); Absolute Neutrophil Count 3.01 10^3/uL (1.2-6.7); Basophils % 0.5 %; Eosinophils % 3.3 %; HCT 40.8 % (36.0-46.0); HGB 13.2 g/dL (11.2-15.7); Immature Grans % 0.2 %; Lymphocytes % 34.7 %; MCH 28.9 pg (27.0-33.0); MCHC 32.4 % (32.0-36.0); MCV 90 fL (80-95); MPV 10.7 fL (8.0-11.0); Monocytes % 8.6 %; Neutrophils % 52.7 %; Platelet Count 169 10^3/uL (130-400); RBC 4.56 10^6/uL (3.93-5.22); RDW 12.4 % (11.7-14.6); RDW-SD 40.7 fL; WBC 5.71 10^3/uL (4.4-10.8)
[2024-11-08 09:14] LABS: IgE 7 IU/mL (<158)
[2024-11-09 12:44] LABS: Cheese Cheddar IgE <0.10 kU/L (<0.70); Milk, IgE <0.10 kU/L (<0.70)
== END 2024-11-07 16:20 | disposition home or self-care (01) ==
LOC: LBN 16:19
PROVIDERS: PCP Nurse Practitioner Family; Visit Provider Physician Assistant Surgical
DX: R05.3 Chronic cough (principal); K90.49 Malabsorption due to intolerance, not elsewhere classified
CPT/HCPCS: 82785; 85025; 86003

== ENCOUNTER 2024-11-13 03:12 | Outpatient (CLI) | payer MEDICAID, SELFPAY ==
[2024-11-13] MEDS: Methacholine 100 MG VIAL IH (13:33)
[2024-11-13] MEDS: Inhaler, Assist Device 1 EACH MC (13:33)
[2024-11-13] MEDS: Albuterol HFA 18 GM 200 PUFF INH IH (13:33)
--- NOTE | 2024-11-26 09:50 | PFT_ITS ---
Date of service: 11/13/24 Time of Service: 10:02 Pulmonary Function Test Result Indications: Chronic cough Interpretation Spirometry: No baseline airflow limitation. There was a 15% decline in FEV1 with administra tion of 16mg/mL methacholine. Impression Negative methacholine challenge. Clinical Correlation therefore is recommended.
== END 2024-11-13 03:13 | disposition home or self-care (01) ==
LOC: RT 03:12
PROVIDERS: PCP Nurse Practitioner Family; Visit Provider Student in an Organized Health Care Education/Training Program
DX: R05.3 Chronic cough (principal)
CPT/HCPCS: 94070; 95070; J7674

== ENCOUNTER 2024-11-22 12:36 | Outpatient (CLI) | payer MEDICAID, SELFPAY ==
[2024-11-22 13:29] LABS: Iron 80 ug/dL (50-170); Total Iron Binding Capacity 329 ug/dL (250-450); Transferrin Sat 24 % (15-50)
[2024-11-22 13:51] LABS: Ferritin 54 ng/mL (8-252); Magnesium 2.0 mg/dL (1.8-2.4); Vitamin B12 1014 pg/mL (193-986)
[2024-11-22 13:53] LABS: Folate > 20.0 ng/mL (8.6-20.0)
== END 2024-11-22 12:37 | disposition home or self-care (01) ==
LOC: LBO 12:36
PROVIDERS: PCP Nurse Practitioner Family; Visit Provider Naturopath
DX: R25.2 Cramp and spasm (principal)
CPT/HCPCS: 36415; 82607; 82728; 82746; 83540; 83550; 83735

== ENCOUNTER 2025-01-11 08:26 | Outpatient (CLI) | payer MEDICAID, SELFPAY ==
--- NOTE | 2025-01-11 | DI.RAD_ITS ---
Exam(s) XR KNEE RT 3V AP,LAT,ANNITA EXAM: XR KNEE RT 3V AP,LAT,ANNITA CLINICAL HISTORY: RT KNEE PAIN, M25.561. TECHNIQUE: 2D digital imaging was performed. Three views. COMPARISON: CR XR KNEE RT 3V AP,LAT,ANNITA from 04/25/2024 FINDINGS: BONES: No acute fracture is present. No bony destructive lesion is seen. JOINTS: The knee is normally aligned. No joint effusion is seen. The joint spaces are maintained. There is mild spurring at the articular aspect of the patella. SOFT TISSUE: Normal. IMPRESSION: Mild degenerative changes of the right knee. DATA REPOSITORY: RADIATION DOSE DELIVERED:
== END 2025-01-11 08:46 ==
LOC: DI 08:26
PROVIDERS: PCP Nurse Practitioner Family; Visit Provider Nurse Practitioner Family
DX: M25.561 Pain in right knee (principal)
CPT/HCPCS: 73562

== ENCOUNTER 2025-01-25 14:58 | Outpatient (CLI) | payer MEDICAID, SELFPAY ==
--- NOTE | 2025-01-25 14:38 | DI.RAD_ITS ---
Exam(s) XR KNEE RT 1V EXAM: XR KNEE RT 1V CLINICAL HISTORY: eval R PF symptoms. TECHNIQUE: 2D digital imaging was performed. Single Merchant view. COMPARISON: CR XR KNEE RT 3V AP,LAT,ANNITA from 01/11/2025 FINDINGS: BONES: No acute fracture is present. No bony destructive lesion is seen. JOINTS: The patella shows some lateral subluxation. There is some widening of the medial patellofemoral joint. There is mild spurring at the articular aspect of the patella. SOFT TISSUE: Normal. IMPRESSION: Lateral patellar subluxation. Mild degenerative changes. DATA REPOSITORY: RADIATION DOSE DELIVERED:
== END 2025-01-25 14:59 | disposition home or self-care (01) ==
LOC: DIORS 14:58
PROVIDERS: PCP Nurse Practitioner Family; Visit Provider Student in an Organized Health Care Education/Training Program
DX: M25.561 Pain in right knee (principal); S83.011A Lateral subluxation of right patella, initial encounter; M17.11 Unilateral primary osteoarthritis, right knee
CPT/HCPCS: 73560

== ENCOUNTER 2025-01-29 17:54 | Outpatient (CLI) | payer MEDICAID, SELFPAY ==
[2025-01-29 13:52] LABS: Kit/Specimen SENT
[2025-01-29 13:54] LABS: ESR 18 mm/hr (0-30)
[2025-01-29 14:59] LABS: C-Reactive Protein < 0.50 mg/dL (<or=0.5)
[2025-02-02 17:10] LABS: Casein IgG 3.6 mcg/mL; Wheat IgG 5.7 mcg/mL
== END 2025-01-29 17:55 | disposition home or self-care (01) ==
LOC: LBO 17:54
PROVIDERS: Naturopath; PCP Nurse Practitioner Family; Visit Provider Student in an Organized Health Care Education/Training Program
DX: K52.9 Noninfective gastroenteritis and colitis, unspecified; R53.83 Other fatigue
CPT/HCPCS: 36415; 82784; 83516; 85652; 86001; 87798; 86038; 86140; 86431; 86618

== ENCOUNTER 2025-02-28 02:17 | Outpatient (CLI) | payer MEDICAID, SELFPAY ==
--- NOTE | 2025-02-28 14:30 | DI.US_ITS ---
APPROVED REPORT EXAM: Comprehensive 2D, Doppler, and color-flow Echocardiogram Patient Location: Out-Patient Technology Assistant: Amy Singh RDCS (AE) Indications: Dilated ascending aorta Other Information Study Quality: Adequate Conclusion Normal left ventricular wall thickness and chamber size. Ejection fraction is 60%. Wall motion is normal Normal right ventricular size and function Both atria are normal in size There is no structural or hemodynamically significant valvular disease Normal estimated right ventricular systolic pressure 19 mmHg Ascending aorta measures 4.3 cm Wall motion Left Ventricle The left ventricle is normal size. The left ventricular systolic function is normal. The left ventricular ejection fraction is within the normal range. There is normal left ventricular wall thickness. There is normal LV segmental wall motion. There is no ventricular septal defect visualized. LVEF is 60%. Right Ventricle The right ventricle is normal size. The right ventricular systolic function is normal. Atria The left atrium size is normal. The right atrium size is normal. The interatrial septum is intact with no evidence for an atrial septal defect. Aortic Valve The aortic valve is normal in structure. Aortic valve is trileaflet. There is no aortic valvular stenosis. Trace aortic regurgitation. Mitral Valve The mitral valve is normal in structure. No evidence of mitral valve stenosis. Trace to mild mitral regurgitation. Tricuspid Valve The tricuspid valve is normal in structure. There is no tricuspid valve stenosis. Mild tricuspid regurgitation. The RVSP is 19.3 mmHg. Pulmonic Valve The pulmonary valve is normal in structure. There is no pulmonic valvular stenosis. There is no pulmonic valvular regurgitation. Great Vessels Aortic root is mildly dilated. Dilated ascending aorta Aortic arch is normal in caliber IVC is normal in size and collapses >50% with inspiration. Pericardium There is no pericardial effusion. 2D Dimensions IVSD d PLAX 0.82 cm F: 0.6-1.0 Ao Root d 3.56 cm F: 2.7 - 3.3 LVPW d PLAX 0.83 cm F: 0.6 - 1.0 Ao Asc Diam d 4.30 cm F: 2.3 - 3.1 LVID d PLAX 4.51 cm F: 3.8 - 5.2 LVDs 3.14 cm F: 2.2 - 3.5 LV EF Teichholz 57.9 % FS 30.41 % LV EDV (Teich) 93.1 mL LV ESV (Teich) 39.2 mL M-Mode TAPSE 2.08 cm (M/F) >1.7 Auto EF LV EDV A4C 99.8 mL LV EDV A2C 89.4 mL LV EDV BP 97.2 mL LV ESV A4C 43.3 mL LV ESV A2C 37.6 mL LV ESV BP 39.9 mL LVEF(%) A4C 56.6 % LVEF(%) A2C 58.0 % LVEF(%) BP 59.0 % LV SV A4C 56.4 ml LV SV A2C 51.8 ml LV SV BP 57.4 ml LV CO A4C 3.5 L/min LV CO A2C 3.4 L/min LV CO BP 3.5 L/min HR A4C 62.29 BPM HR A2C 65.46 BPM LV EDV Index (BP) LA Volume LA Length A4C 5.3 cm LA Length A2C 5.3 cm LA Area A4C s 20.18 cm2 LA Area A2C s 20.25 cm2 LA Vol A4C A-L 64.71 mL LA Vol A2C A-L 65.75 mL LA Vol Biplane A-L 65.5 mL LA Vol/BSA A4C A-L LA Vol/BSA A2C A-L LA Vol/BSA BP A-L 33.6 mL/m2 LA Vol A4C MOD 59.1 mL LA Vol A2C MOD 61.8 mL LA Vol BP MOD 60.5 mL RA Volume RA Area A4C 13.6 cm2 RA ESV A4C (A-L) 36.3mL RA Vol/BSA A4C A-L RA Length A4C 4.3 cm RA ESV A4C (MOD) 32.9mL LV Diastology MV E' medial 0.098 (>0.07 m/s) MV E Vmax 0.78 (0.4-1.3 m/s) MV E/E' MED 7.94 (<14) MV A Vmax 0.60 (0.4-1.3 m/s) MV E' lateral 0.113 (>0.1 m/s) E/A Ratio 1.3 MV E/E' LAT 6.88 (<14) MV E' Average 0.105 m/s MV E/E'(average) 7.37 Aortic Valve AoV Vmax 1.29 m/s LVOT Vmax 1.10 m/s AoV Peak Grad 6.6 mmHg LVOT Peak Grad 4.8 mmHg AoV Area (Vmax) 2.79 cm2 LVOT VTI 0.255 m AoV VTI 0.301 m LVOT Mean Grad 2.5 mmHg AoV Mean Shun. 0.88 m/s LVOT SV 83.44 mL AoV Mean Grad 3.6 mmHg LVOT Diam s 2.00 cm AoV Area (VTI) 2.78 cm2 AV Regurg Peak Gr. 6.64 mmHg Velocity Ratio 0.85 Mitral Valve MV DT 190 (160-240 msec) MV Vmax TIPS 0.84 m/s MV Mean Grad 1.1 (<2mmHg) MV VTI 0.206 m Pulmonary Valve PV Vmax 0.75 (0.5-1.5 m/s) RVOT Vmax 0.55 m/s PV Peak Grad 2.2 mmHg RVOT Peak Gr. 1.2 mmHg PV Mean Shun 0.56 m/s RVOT VTI 0.135 m PV Mean Grad 1.4 mmHg RVOT Mean Gr. 0.8 mmHg Tricuspid Valve RA Pressure 3.00 mmHg TR Vmax 2.02 m/s TV S' 0.13 m/s TR Peak Grad 16.3 mmHg RVSP (TR) 19.3 mmHg
== END 2025-02-28 02:37 ==
LOC: DI 02:18
PROVIDERS: PCP Nurse Practitioner Family; Visit Provider Physician Assistant Surgical
DX: I77.810 Thoracic aortic ectasia (principal)
CPT/HCPCS: 93306

== ENCOUNTER → 2025-05-10 00:09 | Outpatient (CLI) | payer MEDICAID, SELFPAY ==
--- NOTE | 2025-05-10 | ETT_ITS ---
APPROVED REPORT Exam: Exercise Treadmill Patient Location: Out-Patient Room/Bed: Stress Nurse: Lulu Miller RN Ordering Provider:WONG ALAN, Contact Number: [phone] BMI: 35.42 Baseline Rhythm: Sinus Rhythm Indications: Shortness of breath Medical History Medical History: chronic pain, fatigue, obesity, HLD Cardiac Medications: proair respiclick-inhaler, montelukast sod. Allergies: NKDA Cardiac Risk Factors: family hx, prediabetes, HLD, obesity Previous Cardiac Procedures: n/a Pretest Chest Pain Characteristics: No chest pain Exercise History: Indeterminate Physical Disabilities: Right knee Lung Sounds: Clear to auscultation Heart Sounds: Regular Stress Test Details Test: Exercise stress testing was performed using a Tito protocol. Rest Stress HR Resting HR Supine: 73 bpm Max Heart Rate (APMHR): 157 bpm Resting HR Standin bpm Target HR (85% APMHR): 133 bpm Max HR Achieved: 152 bpm % of APMHR: 97 Recovery HR: 77 bpm HR response to stress: Normal HR response to stress BP Resting BP Supine: 120/68 mmHg Resting BP Standin/90 mmHg Max BP: 170/88 mmHg Recovery BP: 110/76 mmHg BP response to stress: Normal blood pressure response to stress. ECG Resting ECG: Sinus Rhythm, nonspecific ST-T abnormalities Ectopy: PACs Stress ECG: Sinus Tachycardia Arrhythmia: None Recovery ECG: Sinus Rhythm Recovery Arrhythmia: PACs Clinical Reason for Termination: Target HR Achieved, Fatigue Stress Symptoms: General Fatigue, Dyspnea Exercise duration: 06 min11 sec Highest Stage Reached: Stage 2: 2.5 mph at 12% grade. Exercise capacity: 7.32 METs Angina Score: None Rate Pressure Product: [id number] Stress ECG Conclusion 1. Resting electrocardiogram was normal 2. Patient exercised on the Tito protocol and completed workload of 7 METS 3. Normal heart rate and blood pressure response to exercise. The patient achieved 97% of maximal predicted heart rate for age 4. At peak exercise there was no electrocardiographic evidence of myocardial ischemia. In recovery the patient developed 1.5 mm horizontal to downsloping ST depression in the inferior and anterolateral leads 5. There were no significant dysrhythmias Stress Test Summary STAGE Time (mins) Speed (mph) Grade (%) HR BP SpO2 SYMPTOMS METS Supine 73 120/68 Standing 86 130/90 97 1 3 1.7 10 132 150/88 98 mild SOB, R knee pain 4.5 2 6 2.5 12 150 mild SOB, R knee pain 7 1 min recovery 119 170/88 97 3 min recovery 89 124/78 96 6 min recovery 77 110/76 97 Pt continued exercising after target HR met; test stopped due to pt request r/t R knee pain (chronic arthritis). Pt experienced mild SOB while exercising. All symptoms resolved and ST depressions back to baseline by end of recovery. Pt left ambulatory in no acute distress.
== END ==
LOC: DI 00:09
PROVIDERS: PCP Nurse Practitioner Family; Visit Provider Nurse Practitioner Family
DX: R06.02 Shortness of breath (principal); I77.810 Thoracic aortic ectasia
CPT/HCPCS: 93017